=== PATIENT | male | born 1950 | race African-American/Black ===

== ENCOUNTER 2017-08-06 11:50 | Emergency (ER) | payer MEDICARE, MEDICAID ==
[~2017-08-06] VITALS: Ht 177.8 cm; Wt 92.0 kg
[~2017-08-06 11:50] MED LIST: ALBU6.7H INH; ASPI-1159 PO; BENA20TA3 PO; CARI350T27 PO; FOLI1TAB63 PO; GLIP5TAB12 PO; IBUP-22 PO; NITR0.4T SL; OMEP20TA2 PO; PRAS10TA6 PO; REN800 PO; TAMS-11 PO
[2017-08-06 12:56] LABS: HEMOGLOBIN. 9.5 g/dL (14.0-18.0); MEAN CORPUSCULAR HEMOGLOBIN 33.7 pg (28.0-32.0); MEAN CORPUSCULAR VOLUME 102.4 fL (80.0-94.0); PLATELET 182 x1000/uL (130-400); RED BLOOD CELL COUNT 2.83 mill/uL (4.7-6.1); RED CELL DISTRIBUTION WIDTH 15.7 % (11.6-14.6)
[2017-08-06 13:02] LABS: PROTHROMBIN TIME 10.7 sec (9.4-11.6)
[2017-08-06 13:07] LABS: CHLORIDE 105 mEq/L (98-107)
[2017-08-06 13:11] LABS: AMMONIA 47 uMol/L (<32); CREATINE KINASE 355 IU/L (39-308); ETHANOL BLOOD < 10 mg/dL
[2017-08-06 13:26] LABS: PLATELET ESTIMATE NORMAL
[2017-08-06] MEDS ORDERED: LORAZEPAM 2MG/ML CPJ IV ONE (14:15)
[2017-08-06 15:15] VITALS: BP 165/82
[2017-08-06] MEDS ORDERED: ONDANSETRON HCL 4MG/2ML VIAL IV PRN (15:15)
[2017-08-06] MEDS ORDERED: ZOLPIDEM TARTRATE 5MG TABLET PO PRN (15:15)
[2017-08-06] MEDS ORDERED: NITROGLYCERIN 0.4MG TABLET SL SL PRN (15:15)
[2017-08-06] MEDS ORDERED: LORAZEPAM 0.5MG TABLET PO PRN (15:15)
[2017-08-06] MEDS ORDERED: DOCUSATE SODIUM 100MG CAPSULE PO PRN (15:15)
[2017-08-06] MEDS ORDERED: GUAIFENESIN 200MG/10ML SUGAR FREE UDC PO PRN (15:15)
[2017-08-06] MEDS ORDERED: ENOXAPARIN 40MG/0.4ML SYR SUBCUT SCH (15:15)
[2017-08-06] MEDS ORDERED: CLONIDINE 0.1MG TABLET PO PRN (15:15)
[2017-08-06] MEDS ORDERED: MORPHINE SULFATE 2 MG/ML CPJ (NOT FOR IM USE) IV PRN (15:15)
[2017-08-06] MEDS ORDERED: DIPHENHYDRAMINE 50MG/ML VIAL IV PRN (15:15)
[2017-08-06] MEDS ORDERED: TRAMADOL 50MG TABLET PO PRN (15:15)
[2017-08-06] MEDS ORDERED: ACETAMINOPHEN 325MG TABLET PO PRN (15:15)
[2017-08-06] MEDS ORDERED: IPRATROPIUM/ALBUTEROL 0.5-3(2.5)MG/3ML NEB INH PRN (15:15)
[2017-08-06] MEDS ORDERED: MAGNESIUM/ALUMINUM HYDROXIDE/SIMETHICONE 30ML UDC PO PRN (15:15)
[2017-08-06] MEDS ORDERED: SODIUM POLYSTYRENE SULFONATE 15 G/60 ML BOT PO SCH (16:42)
[2017-08-06] MEDS ORDERED: SEVELAMER CARBONATE 800 MG TABLET PO SCH (17:00)
[2017-08-06] MEDS ORDERED: FAMOTIDINE 20MG/2ML VIAL IV SCH (21:00)
[2017-08-07] MEDS ORDERED: ASPIRIN 325MG EC TABLET PO SCH (09:00)
[2017-08-07] MEDS ORDERED: AMLODIPINE 10MG TABLET PO SCH (09:00)
[2017-08-07] MEDS ORDERED: FOLIC ACID/VITAMIN B COMP W-C TABLET PO SCH (09:00)
== END 2017-08-06 17:43 | disposition left against medical advice (07) ==
LOC: ER 12:07 → EDBEDREQ 14:31 → ER 17:43 → CANBEDREQ 19:40
DX: T40.2X1A Poisoning by other opioids, accidental (unintentional), initial encounter (principal); G93.40 Encephalopathy, unspecified; I12.0 Hypertensive chronic kidney disease with stage 5 chronic kidney disease or end stage renal disease; E11.22 Type 2 diabetes mellitus with diabetic chronic kidney disease; N18.6 End stage renal disease; J45.909 Unspecified asthma, uncomplicated; E87.5 Hyperkalemia; D53.9 Nutritional anemia, unspecified; Z79.82 Long term (current) use of aspirin; Z99.2 Dependence on renal dialysis; Z79.84 Long term (current) use of oral hypoglycemic drugs; Z89.9 Acquired absence of limb, unspecified; Y92.89 Other specified places as the place of occurrence of the external cause
CPT/HCPCS: 36415; 70450; 71045; 80053; 80061; 82140; 82550; 83036; 83605; 83690; 84484; 85025; 85610; 93005; 93970; 99285; G0482; J2060

== ENCOUNTER 2017-08-07 15:05 | Inpatient (IN) | payer MEDICARE, MEDICAID ==
[~2017-08-07] VITALS: Ht 193 cm; Wt 112.0 kg
[2017-08-07 16:00] LABS: CHLORIDE 107 mEq/L (98-107); INR 1.1; PARTIAL THROMBOPLASTIN TIME 23.9 sec (23.4-31.0); PROTHROMBIN TIME 10.9 sec (9.4-11.6)
[2017-08-07 16:01] LABS: EOSINOPHILS % 8.9 % (0.0-5.0); HEMATOCRIT. 28.7 % (42.0-52.0); HEMOGLOBIN. 9.4 g/dL (14.0-18.0); LYMPHOCYTES % 22.4 % (20.0-50.0); MEAN CORPUSCULAR HEMOGLOBIN 33.4 pg (28.0-32.0); MEAN CORPUSCULAR VOLUME 101.5 fL (80.0-94.0); MONOCYTES % 13.1 % (2.0-8.0); NEUTROPHILS % 54.6 % (40.0-76.0); PLATELET 188 x1000/uL (130-400); RED BLOOD CELL COUNT 2.83 mill/uL (4.7-6.1); RED CELL DISTRIBUTION WIDTH 15.6 % (11.6-14.6)
[2017-08-07] MEDS ORDERED: DEXTROSE 50% WATER 50ML SYRINGE IV PRN (18:15)
[2017-08-07] MEDS ORDERED: IPRATROPIUM/ALBUTEROL 0.5-3(2.5)MG/3ML NEB HHN PRN (18:15)
[2017-08-07] MEDS ORDERED: CLONIDINE 0.1MG TABLET PO PRN (18:15)
[2017-08-07 21:40] VITALS: BP 157/80
[2017-08-07 22:28] VITALS: BP 157/80
[2017-08-07] MEDS: INSULIN LISPRO 100 UNITS/ML SUBCUT SCH (22:30)
[2017-08-07] MEDS: BLOOD SUGAR DIAGNOSTIC STRIP TEST SCH (22:30)
[2017-08-08] VITALS (13 sets, daily range): BP systolic 143–186; BP diastolic 82–129
[2017-08-08] MEDS ORDERED: OXYC30TA89 PO (00:58)
[2017-08-08] MEDS ORDERED: RANI150T7 PO (01:03)
[2017-08-08] MEDS ORDERED: CALC667C PO (01:07)
[2017-08-08] MEDS: BLOOD SUGAR DIAGNOSTIC STRIP TEST SCH ×4 (05:51→22:03)
[2017-08-08 06:18] LABS: HEMATOCRIT 31.8 % (42.0-52.0); HEMOGLOBIN 10.6 g/dL (14.0-18.0); MEAN CORPUSCULAR HEMOGLOBIN 33.1 pg (28.0-32.0); MEAN CORPUSCULAR VOLUME 99.7 fL (80.0-94.0); RED BLOOD CELL COUNT 3.19 mill/uL (4.7-6.1); RED CELL DISTRIBUTION WIDTH 15.8 % (11.6-14.6)
[2017-08-08 08:07] LABS: PLATELET 192 x1000/uL (130-400)
[2017-08-08] MEDS: INSULIN LISPRO 100 UNITS/ML SUBCUT SCH ×4 (08:10→22:34)
[2017-08-08] MEDS: FOLIC ACID/VITAMIN B COMP W-C TABLET PO SCH (08:48)
[2017-08-08] MEDS: OMEPRAZOLE 20MG CAPSULE EXTENDED RELEASE PO SCH (08:48)
[2017-08-08] MEDS: TAMSULOSIN HCL 0.4MG SR CAPSULE PO SCH (08:49)
[2017-08-08] MEDS: SEVELAMER CARBONATE 800 MG TABLET PO SCH ×3 (08:49→18:00)
[2017-08-08] MEDS ORDERED: BENAZEPRIL 20MG TABLET PO SCH (09:00)
[2017-08-08] MEDS: NICOTINE 14MG PATCH TD SCH ×2 (10:15→15:22)
[2017-08-08] MEDS ORDERED: CEFAZOLIN 1000MG PREMIX 50 ML IV ONE (12:00)
[2017-08-08] MEDS ORDERED: SODIUM BICARBONATE 4% (2.4MEQ) 5ML VIAL IV ONE (13:07)
[2017-08-08] MEDS ORDERED: LIDOCAINE HCL 1% 20ML VIAL (Pyxis) INJ ONE (13:07)
[2017-08-08] MEDS ORDERED: FENTANYL CITRATE/PF 50MCG/ML 2ML VIAL ONE (13:08)
[2017-08-08] MEDS ORDERED: IOHEXOL-300 100 ML BOTTLE ONE (13:45)
[2017-08-08] MEDS: OXYCODONE HCL 5MG TABLET PO PRN (17:40)
[2017-08-09] VITALS: BP 148/72
[2017-08-09 04:00] VITALS: BP 136/60
[2017-08-09] MEDS: BLOOD SUGAR DIAGNOSTIC STRIP TEST SCH ×4 (06:51→22:02)
[2017-08-09] MEDS: INSULIN LISPRO 100 UNITS/ML SUBCUT SCH ×4 (06:51→22:02)
[2017-08-09 08:00] VITALS: BP 134/74
[2017-08-09] MEDS: OMEPRAZOLE 20MG CAPSULE EXTENDED RELEASE PO SCH (08:21)
[2017-08-09] MEDS: BENAZEPRIL 20MG TABLET PO SCH (08:22)
[2017-08-09] MEDS: TAMSULOSIN HCL 0.4MG SR CAPSULE PO SCH (08:22)
[2017-08-09] MEDS: SEVELAMER CARBONATE 800 MG TABLET PO SCH ×3 (08:22→18:06)
[2017-08-09] MEDS: FOLIC ACID/VITAMIN B COMP W-C TABLET PO SCH (08:22)
[2017-08-09] MEDS: NICOTINE 14MG PATCH TD SCH (08:23)
[2017-08-09 12:00] VITALS: BP 126/67
[2017-08-09 12:18] LABS: CLARITY URINE CLEAR (CLEAR); COLOR URINE YELLOW (YELLOW); KETONES URINE NEGATIVE (NEGATIVE); LEUKOCYTE ESTERASE URINE NEGATIVE (NEGATIVE); NITRITE URINE NEGATIVE (NEGATIVE); OCCULT BLOOD URINE 1+ (NEGATIVE); PH URINE 5.5 (4.5-8.0); PROTEIN URINE 2+ (NEGATIVE); SPECIFIC GRAVITY URINE 1.021 (1.005-1.030); UROBILINOGEN URINE 0.2 E.U./dL (0.2-1.0)
[2017-08-09 12:55] LABS: *AMPHETAMINES SCREEN URINE NEGATIVE (NEGATIVE); *BARBITURATES SCREEN URINE NEGATIVE (NEGATIVE); *BENZODIAZEPINES SCREEN URINE NEGATIVE (NEGATIVE); *COCAINE SCREEN URINE PRESUMTIVE POSITIVE (NEGATIVE); CANNABINOID URINE SCREEN NEGATIVE (NEGATIVE); METHADONE URINE SCREEN NEGATIVE (NEGATIVE); OPIATES URINE SCREEN NEGATIVE (NEGATIVE); PHENCYCLIDINE URINE SCREEN NEGATIVE (NEGATIVE)
[2017-08-09] MEDS ORDERED: FOLIC ACID/VITAMIN B COMP W-C TABLET PO SCH (13:00)
[2017-08-09 15:21] LABS: BG BASE EXCESS 3.7 mmol/L (-2.0-2.0); BG CARBOXYHEMOGLOBIN 0.2 % (0.5-1.5); BG DEOXYHEMOGLOBIN 7.3 % (0.0-5.0); BG FRACTION INSPIRED OXYGEN 21; BG HCO3 ACT 30.1 mmol/L (22.0-26.0); BG METHEMOGLOBIN 0.3 % (0.0-1.5); BG OXYGEN SATURATION 92.7 % (92.0-98.5); BG OXYHEMOGLOBIN 92.2 % (94.0-97.0); BG PCO2 54.9 mmHg (35.0-45.0); BG PH 7.357 (7.350-7.450); BG PO2 72.2 mmHg (75.0-100.0); BG SAMPLE SITE RIGHT BRACHIAL; BG TOTAL HEMOGLOBIN 10.2 g/dL (12.0-18.0); BG VENT MODE ROOM AIR
[2017-08-09 16:00] VITALS: BP 140/86
[2017-08-09 20:00] VITALS: BP 119/86
[2017-08-09] MEDS: IPRATROPIUM/ALBUTEROL 0.5-3(2.5)MG/3ML NEB HHN SCH (20:50)
[2017-08-09] MEDS ORDERED: EPOETIN ALFA 10000UNITS/ML VIAL SUBCUT SCH (21:00)
[2017-08-09] MEDS: OXYCODONE HCL 5MG TABLET PO PRN (21:57)
[2017-08-10] VITALS: BP 121/71
[2017-08-10] MEDS: IPRATROPIUM/ALBUTEROL 0.5-3(2.5)MG/3ML NEB HHN SCH ×3 (01:48→20:11)
[2017-08-10 04:00] VITALS: BP 128/65
[2017-08-10] MEDS ORDERED: OMEPRAZOLE 20MG CAPSULE EXTENDED RELEASE PO SCH (04:15)
[2017-08-10 06:34] LABS: BASOPHILS % 0.9 % (0.0-2.0); HEMATOCRIT. 28.9 % (42.0-52.0); HEMOGLOBIN. 9.5 g/dL (14.0-18.0); LYMPHOCYTES % 21.6 % (20.0-50.0); MEAN CORPUSCULAR HEMOGLOBIN 33.1 pg (28.0-32.0); MEAN CORPUSCULAR VOLUME 100.7 fL (80.0-94.0); MONOCYTES % 14.8 % (2.0-8.0); NEUTROPHILS % 52.7 % (40.0-76.0); PLATELET 159 x1000/uL (130-400); RED BLOOD CELL COUNT 2.87 mill/uL (4.7-6.1); RED CELL DISTRIBUTION WIDTH 15.4 % (11.6-14.6)
[2017-08-10] MEDS: BLOOD SUGAR DIAGNOSTIC STRIP TEST SCH ×4 (07:25→21:32)
[2017-08-10] MEDS: INSULIN LISPRO 100 UNITS/ML SUBCUT SCH ×4 (07:25→21:00)
[2017-08-10 08:00] VITALS: BP 141/80
[2017-08-10] MEDS: SEVELAMER CARBONATE 800 MG TABLET PO SCH ×4 (08:39→18:10)
[2017-08-10] MEDS: FOLIC ACID/VITAMIN B COMP W-C TABLET PO SCH (08:40)
[2017-08-10] MEDS: TAMSULOSIN HCL 0.4MG SR CAPSULE PO SCH (08:40)
[2017-08-10] MEDS: NICOTINE 14MG PATCH TD SCH (08:41)
[2017-08-10] MEDS: BENAZEPRIL 20MG TABLET PO SCH (08:42)
[2017-08-10 12:00] VITALS: BP 164/74
[2017-08-10 16:00] VITALS: BP 134/70
[2017-08-10 20:00] VITALS: BP 123/51
[2017-08-11] VITALS: BP 133/68
[2017-08-11] MEDS: IPRATROPIUM/ALBUTEROL 0.5-3(2.5)MG/3ML NEB HHN SCH (02:02)
[2017-08-11] MEDS: OXYCODONE HCL 5MG TABLET PO PRN (02:32)
[2017-08-11 04:00] VITALS: BP 112/55
[2017-08-11] MEDS: INSULIN LISPRO 100 UNITS/ML SUBCUT SCH (06:42)
[2017-08-11] MEDS: BLOOD SUGAR DIAGNOSTIC STRIP TEST SCH (06:42)
[2017-08-11] MEDS ORDERED: OMEPRAZOLE 20MG CAPSULE EXTENDED RELEASE PO SCH (07:40)
[2017-08-11 08:00] VITALS: BP 145/79
== END 2017-08-11 08:55 | disposition left against medical advice (07) | DRG 252 ==
LOC: EDBEDREQ 16:50 → ER 16:56 → EDBEDREQ 18:06 → 7WST 18:16 → EDBEDREQ 18:19 → EDBEDREQTM 18:19 → ENRESERV 20:50
PROVIDERS: ADMIT Internal Medicine; ATTEND Internal Medicine
PROC: 05793DZ Dilation of Right Brachial Vein with Intraluminal Device, Percutaneous Approach (ICD-10-PCS; principal; 2017-08-08)
PROC: 05753DZ Dilation of Right Subclavian Vein with Intraluminal Device, Percutaneous Approach (ICD-10-PCS; 2017-08-08)
DX: T82.858A Stenosis of other vascular prosthetic devices, implants and grafts, initial encounter (principal); J96.00 Acute respiratory failure, unspecified whether with hypoxia or hypercapnia; I13.2 Hypertensive heart and chronic kidney disease with heart failure and with stage 5 chronic kidney disease, or end stage renal disease; E87.2 Acidosis; N18.6 End stage renal disease; I42.9 Cardiomyopathy, unspecified; E11.22 Type 2 diabetes mellitus with diabetic chronic kidney disease; I50.23 Acute on chronic systolic (congestive) heart failure; I87.1 Compression of vein; E11.51 Type 2 diabetes mellitus with diabetic peripheral angiopathy without gangrene; J44.9 Chronic obstructive pulmonary disease, unspecified; D63.8 Anemia in other chronic diseases classified elsewhere; E66.9 Obesity, unspecified; Z53.21 Procedure and treatment not carried out due to patient leaving prior to being seen by health care provider; F17.210 Nicotine dependence, cigarettes, uncomplicated; I25.10 Atherosclerotic heart disease of native coronary artery without angina pectoris; L84 Corns and callosities; N40.0 Benign prostatic hyperplasia without lower urinary tract symptoms; Y71.2 Prosthetic and other implants, materials and accessory cardiovascular devices associated with adverse incidents; Z99.2 Dependence on renal dialysis; Z91.19 Patient's noncompliance with other medical treatment and regimen; Z95.5 Presence of coronary angioplasty implant and graft
CPT/HCPCS: 36415; 36600; 36901; 36907; 70450; 71045; 76937; 80048; 80053; 80061; 80305; 81003; 82140; 82375; 82550; 82805; 82962; 83036; 83605; 83690; 84484; 85025; 85027; 85610; 85730; 93005; 93970; 94640; 99291; C1725; C1769; C1876; G0482; J1644; J1815; J3010; J3490; J7050; J7620; Q9967